=== PATIENT | male | born 1965 | race Caucasian/White ===

== ENCOUNTER 2017-10-26 14:22 | Emergency (ER) | payer OTHER ==
--- NOTE | 2017-10-26 14:43 | EDPHY ---
General Time Seen by Provider: 10/26/17 14:31 Narrative: CHIEF COMPLAINT: finger laceration HISTORY OF PRESENT ILLNESS: Patient presents with complaints of finger laceration. This involves the right index finger. This happened within the past hour. He was working with a lathe in his garage when "the threaded bar did a 90 and hit me in the abdomen and index finger." Moderately painful when he touches or moves the finger. Does not radiate. No pulsatile bleeding described. No numbness but some tingling of the right finger. No abdominal pain. No injuries to the face or eyes. He has not irrigated the wound yet. Tetanus is up-to-date less than 4 years ago. No other associated complaints or modifying factors. Right-hand dominant. TIME OF INJURY: Less than 1 hr prior to arrival TETANUS STATUS: [birth year] [age] MEDICAL/SURGICAL/SOCIAL HISTORY: Uncomplicated medical history. Lives and works here independently. REVIEW OF SYSTEMS: Ten systems reviewed and are negative unless otherwise noted in the HPI EXAMINATION General Appearance: Alert, no distress Head: normocephalic, atraumatic Cardiovascular: Radial pulses symmetric. Brisk cap refill on the right index finger. Abdomen: Superficial abrasions to the left periumbilical region without any tenderness, tympany rigidity. These abrasions are very superficial and do not compromise even the dermal layer. Neurological: A&O, 2 point sensory symmetric, light sensation symmetric to the fingers. Interossei strength symmetric. Skin: Warm and dry. There is a 2.5 cm laceration involving the right index finger distal phalanx including the nail. The nail is not elevated. There is no foreign body. No pulsatile bleeding. No injury to the nail bed. Extremities: Tenderness in the right index finger. Full flexion extension DIFFERENTIAL DIAGNOSES: Including but not limited to tuft fracture, laceration, complex laceration, laceration with nail injury, avulsion MDM: 2:50 p.m. Accidental laceration to the right index finger that does involve the nail but no injury to the nail bed. Prior to my digital Block he was neurovascular intact with some paresthesia a 2 point sensation was intact at the base of the distal phalanx. He will need irrigation, x-ray for possible tuft fracture. His tetanus is up-to-date less than 4 years ago. I have administered a digital block and will proceed with this. 3:10 p.m. X-ray as read by me does reveal a fracture of the distal phalanx, making this an open tuft fracture. He is a nondiabetic, nonsmoker and does not take any DMARDs. I will treat him with empiric coverage of Keflex. 3:35 p.m. Laceration has been repaired with excellent approximation of wound borders. There is injury to the nail but not the nail bed. No foreign body. No pulsatile bleeding. He will be placed in tube gauze dressing with splint. Antibiotics prophylactically. I did provide the on-call hand surgeon for him to contact tomorrow for definitive care. We discussed ice, elevation, anti- inflammatories. We discussed ED precautions and he is discharged home stable condition. PROCEDURE: Digital Block Indication: Finger laceration Consent: Verbal Location: Right index finger Anesthesia: Lidocaine 1% plain, 0.25% Marcaine plain, 5mL Description: Base of the finger was prepped. The above was infused without difficulty. Tolerated well. Good anesthesia. Complications: None PROCEDURE: Laceration repair Consent: Verbal Location: Right index finger, distal phalanx pad involving the nail Length of repair: 2.5 cm Complexity: Complex Layer involvement: Single Anesthesia: Digital block Irrigation: Extensive Debridement: None Procedure description: Following good anesthesia, the wound was copiously irrigated. Wound bed was explored with a sterile glove, and there is no foreign body noted. There was injury to the nail and on the distal portion of the nail bed. This was repaired Wound borders were approximated well with good hemostasis. Tolerated well without complication. Suture/Staple material: 5-0 Prolene, 4 simple ruptured sutures Wound care: Routine as discussed Suture/Staple removal: 7-10 Days SUPERVISION: This patient was independently evaluated without direct involvement of or examination by the attending physician. ED Precautions: Worsening pain. Erythema, edema, cyanosis, pallor, paresthesia or anesthesia. - History Smoking Status: Never smoked - Objective Vital Signs: Initial Vital Signs Temperature (C) 98.2 F 10/26/17 14:24 Heart Rate 69 10/26/17 14:24 Respiratory Rate 18 10/26/17 14:24 Blood Pressure 154/94 H 10/26/17 14:24 O2 Sat (%) 94 10/26/17 14:24 O2 Delivery Mode Room Air Allergies/Adverse Reactions: acetaminophen [From Percocet] Allergy (Verified 10/26/17 14:24) oxycodone [From Percocet] Allergy (Verified 10/26/17 14:24) Home Medications: Medication Instructions Recorded NK [No Known Home Meds] 04/26/13 Cephalexin [Keflex (*)] 500 mg PO QID #28 cap 10/26/17 traMADol [Ultram 50 mg (*)] 50 mg PO Q4 PRN #7 tab 10/26/17 Departure - Departure Disposition: Home, Routine, Self-Care Clinical Impression: Open fracture of distal phalanx of right index finger Qualifiers: Encounter type: initial encounter Fracture alignment: nondisplaced Qualified Code(s): S62.660B - Nondisplaced fracture of distal phalanx of right index finger, initial encounter for open fracture Laceration of right index finger Qualifiers: Encounter type: initial encounter Damage to nail status: with damage Foreign body presence: without foreign body Qualified Code(s): S61.310A - Laceration without foreign body of right index finger with damage to nail, initial encounter Condition: Good Instructions: Care For Your Stitches (ED), Finger Fracture (ED), Finger Laceration (ED) Additional Instructions: 1. Thin layer of bacitracin once daily for the next 2 days 2. Keep the wound covered while showering for the next 3 days 3. Keep your splint in place until seen by hand surgeon for definitive care 4. Return here for suture removal in 7 days 5. Return here for signs of infection as discussed including warmth, redness, fever, drainage from the site 6. return here for increasing pain surrounding the laceration 7. Do not submerge the wound in any water, hot tub, swimming pool until sutures removed 8. contact hand surgeon tomorrow to be seen for definitive care Referrals: Marina Henson MD [Primary Care Provider] - As per Instructions Prescriptions: Cephalexin [Keflex (*)] 500 mg PO QID #28 cap traMADol [Ultram 50 mg (*)] 50 mg PO Q4 PRN #7 tab PRN Reason: Pain, Mild
[2017-10-26 16:05] VITALS: BP 150/88
== END 2017-10-26 16:04 | disposition home or self-care (01) ==
PROC: 0HQFXZZ Repair Right Hand Skin, External Approach (ICD-10-PCS; principal; 2017-10-26)
DX: S62.660B Nondisplaced fracture of distal phalanx of right index finger, initial encounter for open fracture (principal); W31.1XXA Contact with metalworking machines, initial encounter; Y92.094 Garage of other non-institutional residence as the place of occurrence of the external cause; Y99.8 Other external cause status; Y93.89 Activity, other specified
CPT/HCPCS: L3925